=== PATIENT | male | born 1975 | race Caucasian/White ===

== ENCOUNTER 2017-09-24 17:40 | Emergency (ER) | payer SELFPAY ==
[~2017-09-24] VITALS: Ht 165.1 cm; Wt 77.6 kg
[2017-09-24 17:41] VITALS: BP 129/79
--- NOTE | 2017-09-24 17:47 | NUR ---
PT AMB TO [facility]
--- NOTE | 2017-09-24 17:48 | NUR ---
41/M present to ER c/o toothache since Tuesday09/21/2017.DENIES N/V/D; SKIN IS PINK/WARM/DRY; AAOX4 WITH EVEN AND STEADY GAIT; LUNGS CLEAR BL; HR EVEN AND REGULAR; PT DENIES ANY FEVER, CP, SOB, OR COUGH AT THIS TIME; PATIENT STATES PAIN OF 8/10 AT THIS TIME.
--- NOTE | 2017-09-24 18:10 | NUR ---
Patient being evaluated by DR HAYS at bedside.
[2017-09-24] MEDS ORDERED: LIDOCAINE VISCOUS 2% 20 ML UDC PO ONE (18:15)
[2017-09-24] MEDS ORDERED: CLINDAMYCIN 600 MG/4 ML VIAL IM ONE (18:15)
[2017-09-24] MEDS ORDERED: KETOROLAC 60 MG/2 ML VIAL IM ONE (18:15)
[2017-09-24 18:32] VITALS: BP 113/68
--- NOTE | 2017-09-24 18:32 | NUR ---
Patient discharged with v/s stable. Written and verbal after care instructions given and explained. Patient alert, oriented and verbalized understanding of instructions. Ambulatory with steady gait. All questions addressed prior to discharge. ID band removed. Patient advised to follow up with PMD. Rx of TRAMADOL & CLINDAMYCIN given. Patient educated on indication of medication including possible reaction and side effects. Opportunity to ask questions provided and answered.
== END 2017-09-24 18:32 | disposition home or self-care (01) ==
LOC: MED 17:40
DX: K12.2 Cellulitis and abscess of mouth (principal); K08.89 Other specified disorders of teeth and supporting structures; R03.0 Elevated blood-pressure reading, without diagnosis of hypertension
CPT/HCPCS: 96372; 99284; J1885; J3490